=== PATIENT | female | born 1970 | race Two or more races ===

== ENCOUNTER 2017-05-21 23:23 | Emergency (ER) | payer OTHER ==
[~2017-05-21] VITALS: Ht 167.6 cm; Wt 65.3 kg
[2017-05-22] MEDS ORDERED: SODIUM CHLORIDE FLUSH 10ML SYR IVF ONE
[2017-05-22] MEDS ORDERED: ONDANSETRON 2MG/ML, 2ML IVPush ONE
[2017-05-22] MEDS ORDERED: SODIUM CHLORIDE 0.9% 1,000ML IVBOLUS ONE
[2017-05-22] MEDS ORDERED: PROCHLORPERAZINE 5 MG/ML, 2ML IVPush ONE
[2017-05-22] MEDS ORDERED: DIPHENHYDRAMINE 50 MG/ML, 1ML IVPush ONE
[2017-05-22] MEDS ORDERED: KETOROLAC 30 MG/1 ML IVPush ONE (03:30)
[2017-05-22] MEDS ORDERED: KETOROLAC 30 MG/1 ML ONE (03:35)
[2017-05-22] MEDS ORDERED: DIPHENHYDRAMINE 50 MG/ML, 1ML ONE (03:35)
[2017-05-22] MEDS ORDERED: PROCHLORPERAZINE 5 MG/ML, 2ML ONE (03:35)
[2017-05-22] MEDS ORDERED: LORazepam 2 MG/ML, 1ML IVPush ONE (04:30)
[2017-05-22 05:31] VITALS: BP 137/84
== END 2017-05-22 05:36 | disposition home or self-care (01) ==
LOC: ED 23:59
DX: G43.009 Migraine without aura, not intractable, without status migrainosus (principal); I10 Essential (primary) hypertension; E11.9 Type 2 diabetes mellitus without complications
CPT/HCPCS: 70450; 96374; 96375; 99284; J0780; J1200; J1885; J7030

== ENCOUNTER 2018-03-10 22:30 | Inpatient (IN) | payer OTHER ==
[~2018-03-10] VITALS: Ht 157.5 cm; Wt 57.0 kg
[2018-03-10] MEDS ORDERED: SODIUM CHLORIDE 0.9% 1,000ML IV ONE (23:00)
[2018-03-10] MEDS ORDERED: ACETAMINOPHEN 500 MG TABLET PO ONE (23:00)
[2018-03-10 23:18] LABS: CULTURE INDICATED? YES; MICROSCOPIC INDICATED
[2018-03-10] MEDS ORDERED: MORPHINE SULFATE 4 MG/ML, 1ML ONE (23:19)
[2018-03-10] MEDS ORDERED: ACETAMINOPHEN 500 MG TABLET ONE (23:19)
[2018-03-10] MEDS ORDERED: ONDANSETRON 2MG/ML, 2ML ONE (23:19)
[2018-03-10] MEDS: MORPHINE SULFATE 4 MG/ML, 1ML IVPush PRN (23:21)
[2018-03-10] MEDS ORDERED: CEFTRIAXONE PMX 1GM/50ML 50 ML ONE (23:28)
[2018-03-10] MEDS ORDERED: ONDANSETRON 2MG/ML, 2ML IVPush ONE (23:30)
[2018-03-10] MEDS ORDERED: CEFTRIAXONE PMX 1GM/50ML 50 ML IV ONE (23:30)
--- NOTE | 2018-03-10 23:30 | NUR ---
PT MEDICATED FOR PAIN, FEVER, AND NAUSEA PER [facility]AR
--- NOTE | 2018-03-10 23:34 | NUR ---
ABX STARTED AFTER BLOOD CX DRAWN
[2018-03-10 23:39] LABS: BASOPHILS # (AUTO) 0.07 x10^3/uL (0-0.1); BASOPHILS % (AUTO) 1 % (0-1); EOSINOPHILS # (AUTO) 0.04 x10^3/uL (0-0.4); EOSINOPHILS % (AUTO) 0 % (1-7); LYMPHOCYTES # (AUTO) 1.71 x10^3/uL (1-3.4); LYMPHOCYTES % (AUTO) 17 % (22-44); MD NO; MEAN CORPUSCULAR HEMOGLOBIN 29.4 pg (27.0-34.8); MEAN PLATELET VOLUME 8.5 fL (7.4-10.4); MONOCYTES # (AUTO) 0.59 x10^3/uL (0.2-0.8); MONOCYTES % (AUTO) 6 % (2-9); NEUTROPHILS # (AUTO) 7.73 x10^3/uL (1.8-6.8); NEUTROPHILS % (AUTO) 76 % (42-75); PLATELET COUNT 308 x10^3/uL (130-400); RED BLOOD COUNT 4.87 x10^6/uL (3.82-5.3); RED CELL DISTRIBUTION WIDTH 12.1 % (9.6-15.2)
[2018-03-10 23:48] LABS: ALANINE AMINOTRANSFERASE 23 U/L (12-78); ALBUMIN 3.6 g/dL (3.4-5.0); ANION GAP 12 mmol/L (5-15); CALCIUM 8.7 mg/dL (8.5-10.1); CHLORIDE 99 mmol/L (98-107); CREATININE 0.81 mg/dL (0.55-1.02)
[2018-03-10 23:51] LABS: ALKALINE PHOSPHATASE 96 U/L (45-117); BILIRUBIN,TOTAL 0.7 mg/dL (0.2-1.0)
[2018-03-11] MEDS ORDERED: METFORMIN (00:11)
--- NOTE | 2018-03-11 00:12 | NUR ---
PT AMBULATED TO BATHROOM WITH STEADY GAIT
[2018-03-11] MEDS ORDERED: MORPHINE SULFATE 4 MG/ML, 1ML ONE (00:25)
[2018-03-11] MEDS: MORPHINE SULFATE 4 MG/ML, 1ML IVPush PRN (00:29)
[2018-03-11] MEDS ORDERED: SODIUM CHLORIDE 0.9% 1,000ML IVBOLUS ONE (01:00)
--- NOTE | 2018-03-11 01:05 | NUR ---
DR CLAY AT BEDSIDE UPDATING PT ON POC
--- NOTE | 2018-03-11 01:07 | NUR ---
PER [facility], PT INSURANCE IS NOT BEING ACCEPTED FOR TRANSFERS AT THIS TIME. Addendum: 03/11/18 at 0109 by JESSIE PER BETTY AT [facility], PT INSURANCE IS NOT BEING ACCEPTED FOR TRANSFERS AT THIS TIME.
--- NOTE | 2018-03-11 01:12 | NUR ---
[facility] DENIES PATIENT INSURANCE/ TRANSFER WELL.
--- NOTE | 2018-03-11 01:31 | NUR ---
REPORT GIVEN TO DANAE GUERRERO
[2018-03-11] MEDS ORDERED: morphine SULFATE 10 MG/ML, 1ML IVPush PRN (04:30)
[2018-03-11] MEDS ORDERED: ONDANSETRON 2MG/ML, 2ML IVPush PRN (04:30)
[2018-03-11] MEDS ORDERED: ACETAMINOPHEN 325 MG TABLET PO PRN (04:30)
[2018-03-11] MEDS ORDERED: ONDANSETRON ODT 4 MG PO PRN (04:30)
[2018-03-11] MEDS: PHENAZOPYRIDINE 200 MG TABLET PO SCH ×4 (05:09→21:55)
[2018-03-11] MEDS: IBUPROFEN 600 MG TABLET PO PRN ×3 (05:09→17:17)
[2018-03-11] MEDS: ENOXAPARIN 40 MG/0.4 ML SQ SCH (05:09)
[2018-03-11] MEDS: CEFTRIAXONE PMX 2GM/50ML 50 ML IV SCH (05:09)
[2018-03-11] MEDS: SODIUM CHLORIDE 0.9% 1,000 ML IV SCH ×3 (05:09→21:54)
[2018-03-11 05:58] LABS: ANION GAP 7 mmol/L (5-15); CALCIUM 7.4 mg/dL (8.5-10.1); CHLORIDE 108 mmol/L (98-107); CREATININE 0.54 mg/dL (0.55-1.02)
[2018-03-11 06:05] LABS: BASOPHILS # (AUTO) 0.05 x10^3/uL (0-0.1); BASOPHILS % (AUTO) 1 % (0-1); EOSINOPHILS # (AUTO) 0.02 x10^3/uL (0-0.4); EOSINOPHILS % (AUTO) 0 % (1-7); HEMOGRAM NOTE RECHECKED; LYMPHOCYTES # (AUTO) 2.09 x10^3/uL (1-3.4); LYMPHOCYTES % (AUTO) 24 % (22-44); MD NO; MEAN CORPUSCULAR HEMOGLOBIN 28.5 pg (27.0-34.8); MEAN CORPUSCULAR HGB CONC 33.7 g/dL (32.4-35.8); MEAN CORPUSCULAR VOLUME 84.6 fL (80-100); MEAN PLATELET VOLUME 8.7 fL (7.4-10.4); MONOCYTES # (AUTO) 0.74 x10^3/uL (0.2-0.8); MONOCYTES % (AUTO) 9 % (2-9); NEUTROPHILS # (AUTO) 5.73 x10^3/uL (1.8-6.8); NEUTROPHILS % (AUTO) 66 % (42-75); PLATELET COUNT 259 x10^3/uL (130-400); RED BLOOD COUNT 4.21 x10^6/uL (3.82-5.3); RED CELL DISTRIBUTION WIDTH 12.1 % (9.6-15.2)
[2018-03-11 06:53] VITALS: BP 111/76
[2018-03-11] MEDS ORDERED: INSULIN GLARGINE 100 UNITS/ML, PEN SQ-INSULIN SCH ×2 (08:00→21:00)
[2018-03-11] MEDS: metFORMIN 500 MG TABLET PO SCH ×2 (09:25→17:17)
[2018-03-11] MEDS: INSULIN LISPRO 100 UNITS/ML, PEN SQ-INSULIN SCH ×4 (09:26→22:23)
[2018-03-11 12:46] VITALS: BP 116/77
[2018-03-11 20:00] VITALS: BP 132/75
[2018-03-12 02:18] VITALS: BP 107/71
[2018-03-12] MEDS: CEFTRIAXONE PMX 2GM/50ML 50 ML IV SCH (04:33)
[2018-03-12] MEDS: ENOXAPARIN 40 MG/0.4 ML SQ SCH (04:33)
[2018-03-12] MEDS: IBUPROFEN 600 MG TABLET PO PRN (04:34)
[2018-03-12] MEDS: SODIUM CHLORIDE 0.9% 1,000 ML IV SCH ×2 (06:01→12:27)
[2018-03-12 06:02] LABS: BASOPHILS # (AUTO) 0.02 x10^3/uL (0-0.1); BASOPHILS % (AUTO) 0 % (0-1); EOSINOPHILS # (AUTO) 0.01 x10^3/uL (0-0.4); EOSINOPHILS % (AUTO) 0 % (1-7); LYMPHOCYTES # (AUTO) 1.14 x10^3/uL (1-3.4); LYMPHOCYTES % (AUTO) 23 % (22-44); MD NO; MEAN CORPUSCULAR HEMOGLOBIN 28.5 pg (27.0-34.8); MEAN CORPUSCULAR HGB CONC 33.5 g/dL (32.4-35.8); MEAN CORPUSCULAR VOLUME 85.1 fL (80-100); MEAN PLATELET VOLUME 8.5 fL (7.4-10.4); MONOCYTES # (AUTO) 0.34 x10^3/uL (0.2-0.8); MONOCYTES % (AUTO) 7 % (2-9); NEUTROPHILS # (AUTO) 3.55 x10^3/uL (1.8-6.8); NEUTROPHILS % (AUTO) 70 % (42-75); PLATELET COUNT 249 x10^3/uL (130-400); RED BLOOD COUNT 4.24 x10^6/uL (3.82-5.3); RED CELL DISTRIBUTION WIDTH 12.1 % (9.6-15.2)
[2018-03-12 06:15] LABS: CHLORIDE 105 mmol/L (98-107)
[2018-03-12 06:26] LABS: ANION GAP 7 mmol/L (5-15); CALCIUM 8.1 mg/dL (8.5-10.1); CREATININE 0.46 mg/dL (0.55-1.02)
[2018-03-12 07:03] VITALS: BP 125/77
[2018-03-12] MEDS: metFORMIN 500 MG TABLET PO SCH ×2 (10:00→16:02)
[2018-03-12] MEDS: PHENAZOPYRIDINE 200 MG TABLET PO SCH ×2 (10:00→16:02)
[2018-03-12] MEDS: INSULIN LISPRO 100 UNITS/ML, PEN SQ-INSULIN SCH ×2 (10:00→12:43)
[2018-03-12] MEDS ORDERED: BUTALB/APAP/CAFFEINE 50MG/325MG/40MG PO PRN (11:30)
[2018-03-12 12:23] VITALS: BP 144/86
[2018-03-12] MEDS ORDERED: SULF1TAB24 PO (14:54)
== END 2018-03-12 16:25 | disposition home or self-care (01) | DRG 872 ==
LOC: ED 23:59 → EDIP 03-11 00:54 → 4NOR 03-11 01:55
PROVIDERS: ADMIT Hospitalist; ATTEND Hospitalist
DX: A41.9 Sepsis, unspecified organism (principal); N10 Acute pyelonephritis; B96.89 Other specified bacterial agents as the cause of diseases classified elsewhere; I10 Essential (primary) hypertension; E11.65 Type 2 diabetes mellitus with hyperglycemia; Z87.442 Personal history of urinary calculi; Z86.73 Personal history of transient ischemic attack (TIA), and cerebral infarction without residual deficits; G43.909 Migraine, unspecified, not intractable, without status migrainosus
CPT/HCPCS: 36415; 76770; 80048; 80053; 81001; 82962; 83605; 83735; 84100; 85025; 87040; 87077; 87086; 87147; 87186; 96365; 96375; 99285; G0378; J0696; J1650; J2405; J1815; J7030